=== PATIENT | female | born 1990 | race Caucasian/White ===

== ENCOUNTER 2022-12-19 04:00 | Day surgery (SDC) | payer OTHER ==
[2022-12-19] VITALS (289 sets, daily range): BP systolic 85–155; BP diastolic 40–119
[~2022-12-19] VITALS: Ht 162.6 cm; Wt 66.0 kg
--- NOTE | 2022-12-19 07:00 | NUR ---
Patient arrived to the [facility] suite, identification and demographics confirmed. Patient to room 8, AAO, ambulatory, vitals obtained, ID/allergy/fall bands placed, changed into hospital gown, JARED hose, and non-slip socks. Procedure and timeline explained for treatment and discharge. All questions answered and the patient presents no concerns at this time
[2022-12-19 09:06] LABS: BASO% 0.3 % (0-3); EOS% 3.7 % (0-8); HEMATOCRIT 39.1 % (37.0-47.0); HEMOGLOBIN 13.3 g/dl (12.0-16.0); IMMATURE GRANULOCYTES 0.2 % (0.0-5.0); LYMPH% 38.1 % (15-41); MEAN CELL VOLUME 88.9 fL CALC (80.0-100.0); MEAN CORPUSCULAR HGB 30.2 pG CALC (26.0-32.0); MONO% 7.6 % (2-13); NEUT# 3.08 thou/uL (2.00-7.15); NEUT% 50.1 % (42-76); RED BLOOD COUNT 4.4 mill/uL (4.20-5.60); RED CELL DISTRI WIDTH 12.5 % (11.5-15.5)
[2022-12-19 09:29] LABS: ALBUMIN 4.6 g/dL (3.2-5.0); ALKALINE PHOSPHATASE 47 u/l (38-126); ANION GAP 12 (6-22 (CALC)); BILIRUBIN, TOTAL 0.4 mg/dL (0.02-1.3); BUN 11 mg/dL (7-17); BUN/CREATININE RATIO 18 (12-20 (CALC)); CARBON DIOXIDE 26 mmol/l (22-30); CHLORIDE 103 mmol/l (95-108); CREATININE 0.7 mg/dL (0.5-1.0); GFR FOR AFR.AMER. > 60 ML/MIN (>=60 (CALC)); GFR OTHER RACES > 60 ML/MIN (>=60 (CALC)); POTASSIUM 3.5 mmol/l (3.5-5.1); SGOT/AST 30 u/l (14-36); SODIUM 137 mmol/l (137-146)
--- NOTE | 2022-12-19 09:30 | NUR ---
Patient resting comfortably in bed. Easily aroused, maintains focus, and drifts back to sleep. No signs of active withdrawal or distress noted at this time. Continuous SPO2, rhythm, and respiratory monitoring initiated. IVF @ 250 mL/HR, room air, VSS.
--- NOTE | 2022-12-19 12:10 | NUR ---
Induction Note Patient to [facility] procedure room. Time out performed at 1210. Patient placed on monitors, Jefferson hugger, bilateral wrist restraints applied for ET tube protection. Versed 5mg given IV push at 1213 Tourniquet applied to left arm Lidocaine 100mg given at 1214 IV push followed by Rocoronium 10mg at 1215 IV push and held for 90 seconds. Propofol bolus of 120mg given at 1216 IV push. Succinylcholine 80mg given IV push at 1217. Smooth intubation with 7.5 ETT. Positive CO2. Positive Auscultation for air exchange. Patient placed on ventilator for spontaneous ventilation. Placed on Propofol IV drip at 1218. OG inserted. Positive air on auscultation. Positive gastric content. Stomach washed at this time. At 1225: Naltrexone 50mg given via OG tube with Clonidine 0.2 mg given via OG Tube. OG clamped for 45 minutes. Will monitor patient for symptoms of withdrawal and adjust propfol accordingly.
--- NOTE | 2022-12-19 13:10 | NUR ---
OG open note OG open at this time. Gastric content draining into drainage bag. OG to drain for 45 minutes. Propofol will be titrated down based on patient.
--- NOTE | 2022-12-19 13:55 | NUR ---
OG close note Stomach washed at this time. Naltrexone 50 mg with Clonidine 0.2 mg via OG tube. OG will be clamped for 45 minutes.
--- NOTE | 2022-12-19 15:25 | NUR ---
OG close note Stomach washed at this time. Naltrexone 50 mg with Clonidine 0.2 mg via OG tube. OG will be clamped for 45 minutes.
[2022-12-19] MEDS ORDERED: NALTREXONE50 MG PO (16:29)
[2022-12-19] MEDS ORDERED: KLONOPIN2 MG PO (16:29)
[2022-12-19] MEDS ORDERED: CLONIDINE0.1 MG PO (16:30)
--- NOTE | 2022-12-19 17:00 | NUR ---
OG close note Stomach washed at this time. Naltrexone 25 mg with Clonidine 0.2 mg via OG tube. OG will be clamped for 45 minutes.
--- NOTE | 2022-12-19 18:55 | NUR ---
OG close note Stomach washed at this time. Naltrexone 12.5 mg with Clonidine 0.2 mg via OG tube. OG will be clamped for 45 minutes.
--- NOTE | 2022-12-19 21:10 | NUR ---
Extubation note Closing medications given Benadryl 50mg IV push, Decadron 10mg IV push,Magnesium 4 grams IV, Zofran 8mg IV push, Octreotide 100mcg SC. Stomach washed out prior to extubation. Suctioned gastric content. OG removed. Patient extubated. Propofol Discontinued. Wrist restraints removed. Jefferson hugger Removed. See [facility] Moderate sedate recovery record for further notes and assessment.
--- NOTE | 2022-12-19 22:00 | NUR ---
RECEIVED REPORT FROM [facility] NURSE. PT WAS BROUGHT UP IN BED. PT IS COMPLAINING OF GOING THORUGH SVER WITHDRAWLS. MEDICATIONS HAVE BEEN ADMINISTERED BY [facility] NURSES. IV FLUIDS HAVE BEEN CONTINUED AND PT HAS BEEN MADE AWARE OF PLAN OF CARE FOR THE NIGHT. SAFETY PRECAUTIONS IN PLACE AND CALL LIGHT WITHIN REACH.
--- NOTE | 2022-12-20 | NUR ---
PT IS LAYING IN BED HAVING MOMENTS OF COMPLAINING. PT WILL HAVE EPISODES OF CRYING MOMENTS. PT STATES THAT SHE IS HAING SEVER WITHDRAWLS. ADVISED PT THAT MEDICATION WILL BE GIVEN TO HELP TO EASE SYMPTOMS. SAFETY PRECAUTIONS IN PLACE AND CALL LIGHT WITHIN REACH.
[2022-12-20 02:53] VITALS: BP 115/74
[2022-12-20 03:54] VITALS: BP 115/74
--- NOTE | 2022-12-20 04:00 | NUR ---
PT IS STILL HAVING EPISODES OF CRYING AFTER MEDICATION HAS BEEN ADMINISTERED. PT HAS BEEN MADE AWARE THAT MEDICATION HAS BEEN ADMINISTERED. A NEW IV WAS PLACE DUE TO BOTH PREVIOUS HAD BEEN DISLOGED. SAFETY PRECAUTIONS IN PLACE AND CALL LIGHT WITHIN REACH.
[2022-12-20 06:21] LABS: BASO% 0.1 % (0-3); EOS% 0.1 % (0-8); HEMOGLOBIN 12.8 g/dl (12.0-16.0); IMMATURE GRANULOCYTES 0.3 % (0.0-5.0); LYMPH% 8.1 % (15-41); MEAN CELL VOLUME 88.6 fL CALC (80.0-100.0); MEAN CORPUSCULAR HGB 29.8 pG CALC (26.0-32.0); MEAN CORPUSCULAR HGB CONC 33.7 g/dL CAL (32.0-36.0); MONO% 5.5 % (2-13); NEUT# 9.4 thou/uL (2.00-7.15); NEUT% 85.9 % (42-76); RED BLOOD COUNT 4.29 mill/uL (4.20-5.60); RED CELL DISTRI WIDTH 12.5 % (11.5-15.5)
[2022-12-20 06:37] LABS: ALBUMIN 3.8 g/dL (3.2-5.0); ALKALINE PHOSPHATASE 58 u/l (38-126); ANION GAP 14 (6-22 (CALC)); BILIRUBIN, TOTAL 0.3 mg/dL (0.02-1.3); BUN 7 mg/dL (7-17); BUN/CREATININE RATIO 13 (12-20 (CALC)); CARBON DIOXIDE 21 mmol/l (22-30); CHLORIDE 111 mmol/l (95-108); CREATININE 0.5 mg/dL (0.5-1.0); GFR FOR AFR.AMER. > 60 ML/MIN (>=60 (CALC)); GFR OTHER RACES > 60 ML/MIN (>=60 (CALC)); MAGNESIUM 2.8 mg/dL (1.6-2.3); SGOT/AST 29 u/l (14-36); SODIUM 142 mmol/l (137-146); TOTAL PROTEIN 6.8 g/dL (6.3-8.2)
[2022-12-20 07:45] VITALS: BP 101/58
--- NOTE | 2022-12-20 08:00 | NUR ---
PT IN BED RESTING WITH EYES CLOSED, PT AWAKE TO VOICE, PT IS ALERT AND ORIENTED TO SELF ONLY AT THIS TIME. PT IV SITE TO RH CLEAN AND INTACT, RESTARTED FLUIDS LR @ 100 ML/HR. LUNGS CLEAR. ABD IS SOFT WITH ACTIVE BS. PT HAS CALL LIGHT WITHIN REACH AND SAFETY MEASURES IN PLACE AT THIS TIME.
--- NOTE | 2022-12-20 09:00 | NUR ---
PT GETTING UP TO BATHROOM WITH ONE ASSIST,PT IS VERY AGITATED STATING SHE DOES NOT NEED ANY HELP. PT ASSISTED BACK TO BED AFTER VOIDING AND CLOSED EYES CLOSED AND RESTING. PT HAS CALL LIGHT WITHIN REACH AND SAFETY MEASURES IN PLACE.
--- NOTE | 2022-12-20 11:58 | NUR ---
PT IN BED RESTING, CONTINUES TO ONLY BE ORIENTED TO SELF AT THIS TIME. PT HAS NO C/O PAIN. IV SITE TO RH IS OUT WITH CATHETER INTACT; ATTEMPTED TO START IV X2 , UNSUCCESSFUL, DELANEY IN ANR IS AWARE, AND WILL BE TO ROM TO RESTART. PT HAS CALL LIGHT WITHIN REACH AND SAFETY MEASURES IN PLACE.
--- NOTE | 2022-12-20 13:15 | NUR ---
PT UP AND WALKING WITH ASSISTANCE. PT HAS NO C/O PAIN AT THIS TIME. PT HAS CALL LIGHT WITHIN REACH AND SAFETY MEASURES IN PLACE AT THIS TIME.
[2022-12-20 14:54] VITALS: BP 117/79
--- NOTE | 2022-12-20 16:14 | NUR ---
PT LEFT AMA. PT STATES SHE IS READY TO LEAVE DESPITE THE ADVICE OF FRANKIE LALA,AND MYSELF. PT CUSSING STAFF. IGNACIO Peterson LPN WITNESSED PT STATING SHE IS LEAVING AND DOES NOT CARE WHAT WE SAY. AMA FORM SIGNED BY MYSELF AND WITNESS [place] GOVEA.
== END 2022-12-20 15:46 | disposition left against medical advice (07) | DRG 894 ==
LOC: ANR 04:00 → MS2 07:15 → ANR 11:00 → MS2 17:55 → ANR 12-20 15:46
PROVIDERS: ATTEND Anesthesiology
DX: F11.20 Opioid dependence, uncomplicated (principal)
CPT/HCPCS: J0131; J2060; J2354; J3475